=== PATIENT | male | born 1940 | race Caucasian/White ===

== ENCOUNTER 2019-05-16 20:41 | Inpatient (IN) | payer MEDICARE, OTHER ==
[~2019-05-16] VITALS: Ht 182.9 cm; Wt 91.3 kg
[~2019-05-16 20:41] MED LIST: ALBU90OI INH; AMOCLA875; AZIT250 PO; CEFP500 PO; GUAI600T33 PO; PRED20 PO; UNKOWN B/P MED
[2019-05-16 20:58] LABS: Hematocrit 38.3 % (37.0-53.0); Hemoglobin 12.7 g/dL (13.5-17.5); Mean Corpuscular HGB Conc 33.2 g/dL (31.5-36.5); Mean Corpuscular Volume 90 fL (80-100); Mean Platelet Volume 11.4 fL (9.1-12.4); Platelet Count 147 K/mm3 (150-400); RDW Coefficient Variation 13.4 % (11.7-14.2); RDW Standard Deviation 44.1 fL (35.1-46.3); Red Blood Cell Count 4.24 M/mm3 (4.30-5.90); White Blood Cell Count 25.12 K/mm3 (4.00-11.30)
[2019-05-16 21:15] LABS: BAND PERCENT MAN 29 % (0-8); BASOPHILS PERCENT MAN 0 % (0-2); EOSINOPHILS PERCENT MAN 0 % (0-6); LYMPHOCYTES ABSOLUTE MAN 0.25 K/mm3 (0.84-5.20); LYMPHOCYTES PERCENT MAN 1 % (21-46); MONOCYTES PERCENT MAN 2 % (4-13); NEUTROPHILS ABSOLUTE MAN 24.36 K/mm3 (1.96-9.15); SEG NEUTROPHILS PERCENT MAN 68 % (41-73); TOTAL CELLS COUNTED 100
[2019-05-16 21:17] LABS: Alanine Aminotransfer (ALT/SGP 14 U/L (12-78); Albumin, Blood 2.5 g/dL (3.4-5.0); Albumin/Globulin Ratio 0.7 (0.8-1.8); Alk Phos 69 U/L (50-136); Anion Gap 10 mmol/L (6-16); Aspartate Aminotrans (AST/SGOT 11 U/L (12-37); Bilirubin, Total 0.7 mg/dL (0.1-1.0); Blood Urea Nitrogen 24 mg/dL (8-24); Bun/Creatinine Ratio 22.6 (12.0-20.0); CO2, Blood 23 mmol/L (21-32); Calcium, Blood 8.8 mg/dL (8.5-10.1); Chloride, Blood 100 mmol/L (98-108); Creatinine, Blood 1.06 mg/dL (0.60-1.20); Globulin, Blood 3.7 g/dL (2.2-4.0); Glomerular Filtration Rate >60 (60-); Glucose, Blood 162 mg/dL (70-99); Potassium, Blood 3.8 mmol/L (3.5-5.5); Sodium, Blood 133 mmol/L (136-145); Total Protein, Blood 6.2 g/dL (6.4-8.2); Troponin I <0.015 ng/mL (0.000-0.040)
[2019-05-16] MEDS ORDERED: IBUP600 PO (22:38)
[2019-05-16] MEDS ORDERED: Zantac150 MG PO (22:38)
[2019-05-16] MEDS ORDERED: FINA5 PO (22:39)
[2019-05-16] MEDS ORDERED: PANT40 PO (22:40)
[2019-05-16] MEDS ORDERED: ACTIFED (22:40)
[2019-05-16] MEDS ORDERED: MONT10T PO (22:40)
[2019-05-16] MEDS ORDERED: ALFU10 (22:40)
[2019-05-16] MEDS ORDERED: Flonase 0.05% N16 GM (22:41)
[2019-05-16] MEDS ORDERED: AMLO5 PO (22:41)
[2019-05-16] MEDS ORDERED: STRIVERDI RESPIM4 GM INH (22:42)
[2019-05-16] MEDS ORDERED: ALBU90OI INH (22:43)
[2019-05-16 23:03] LABS: International Normalized Ratio 1.11; Prothrombin Time Results 11.7 Sec (9.7-11.5)
[2019-05-17] MEDS ORDERED: TRAM50 PO (00:48)
[2019-05-17] MEDS ORDERED: ABAT250V (00:48)
--- NOTE | 2019-05-17 04:24 | NUR ---
SHIFT SUMMARY: 79 Y/O MALE RESTED COMFORTABLY ALL SHIFT, DENIES PAIN, NAUSEA OR DYSPNEA, COMPLETED 3LITER BOLUS LACTATED RINGERS AND VOIDING CLEAR YELLOW FLUID, AFEBRILE, WENT HOME FOR NIGHT, BED LOW POSITION, CALL LIGHT AT SIDE.
[2019-05-17 05:29] LABS: Hematocrit 33.5 % (37.0-53.0); Mean Corpuscular HGB 29.5 pg (26.0-34.0); Mean Corpuscular HGB Conc 32.8 g/dL (31.5-36.5); Mean Corpuscular Volume 90 fL (80-100); Mean Platelet Volume 12.5 fL (9.1-12.4); Platelet Count 125 K/mm3 (150-400); RDW Coefficient Variation 13.7 % (11.7-14.2); RDW Standard Deviation 45.1 fL (35.1-46.3); Red Blood Cell Count 3.73 M/mm3 (4.30-5.90); White Blood Cell Count 20.02 K/mm3 (4.00-11.30)
[2019-05-17 05:46] LABS: BAND PERCENT MAN 23 % (0-8); BASOPHILS PERCENT MAN 0 % (0-2); EOSINOPHILS PERCENT MAN 0 % (0-6); LYMPHOCYTES PERCENT MAN 3 % (21-46); MONOCYTES PERCENT MAN 3 % (4-13); NEUTROPHILS ABSOLUTE MAN 18.81 K/mm3 (1.96-9.15); SEG NEUTROPHILS PERCENT MAN 71 % (41-73); TOTAL CELLS COUNTED 100
[2019-05-17 05:55] LABS: Anion Gap 7 mmol/L (6-16); Blood Urea Nitrogen 21 mg/dL (8-24); CO2, Blood 28 mmol/L (21-32); Calcium, Blood 8.6 mg/dL (8.5-10.1); Chloride, Blood 105 mmol/L (98-108); Creatinine, Blood 1.05 mg/dL (0.60-1.20); Glomerular Filtration Rate >60 (60-); Glucose, Blood 112 mg/dL (70-99); Potassium, Blood 3.4 mmol/L (3.5-5.5); Sodium, Blood 140 mmol/L (136-145)
[2019-05-17 10:27] LABS: Source, Urine Catheter
[2019-05-17 10:32] LABS: Bilirubin, Urine Neg (Neg); Blood, Urine 1+ (Neg); Glucose Qualitative, Urine Neg (Neg); Ketones, Urine Neg (Neg); Leukocyte Esterase, Urine Neg (Neg); Nitrite, Urine Neg (Neg); Protein, Urine 1+ (Neg); Specific Gravity, Urine 1.005 (1.003-1.022); Urobilinogen, Urine NORM (Normal); pH, Urine 6.5 (5.0-8.0)
[2019-05-17 10:50] LABS: Appearance, Urine Clear (Clear); Color, Urine Yellow (P-Yellow)
[2019-05-17 10:51] LABS: Bacteria Rare /hpf; Red Blood Cells, Urine 0-2 /hpf (0-2); Squamous Epithelial Cells Not Seen /hpf (Few); White Blood Cells, Urine 0-2 /hpf (0-5)
[2019-05-17 12:18] LABS: Adenovirus Not Detected (NOT DETECT); Bordetella pertussis Not Detected (NOT DETECT); Chlamydophila pneumoniae Not Detected (NOT DETECT); Coronavirus 229E Not Detected (NOT DETECT); Coronavirus HKU1 Not Detected (NOT DETECT); Coronavirus NL63 Not Detected (NOT DETECT); Coronavirus OC43 Not Detected (NOT DETECT); Human Metapneumovirus Not Detected (NOT DETECT); Human Rhinovirus/Enterovirus Not Detected (NOT DETECT); Influenza A Not Detected (NOT DETECT); Influenza A/2009-H1 Not Detected (NOT DETECT); Influenza A/H1 Not Detected (NOT DETECT); Influenza A/H3 Not Detected (NOT DETECT); Influenza B Not Detected (NOT DETECT); Mycoplasma pneumoniae Not Detected (NOT DETECT); Parainfluenza Virus 1 Not Detected (NOT DETECT); Parainfluenza Virus 2 Not Detected (NOT DETECT); Parainfluenza Virus 3 Not Detected (NOT DETECT); Parainfluenza Virus 4 Not Detected (NOT DETECT); Respiratory Syncytial Virus Not Detected (NOT DETECT)
--- NOTE | 2019-05-17 17:14 | NUR ---
SHIFT SUMMARY PATIENT A&O X4, INDEPENDENT IN ROOM. PT HAS A STRONG DRY COUGH, WITH OCCASIONAL THICK DELGADO/CLEAR SPUTUM, SAMPLE SENT TO LAB. HE IS VOIDING WELL INTO THE URINAL. HE C/O MODERATE PAIN IN CHEST WHEN COUGHING CORESPONDING WITH A SLIGHT SPASM IN L FLANK. HE STATES HE ALSO HAS 4/10 CHRONIC R SHOULDER PAIN, STATING HE MAY HAVE A TORN ROTATOR CUFF. VSS, ON RA. DENIES SOB, NAUSEA, FEELING HOT/COLD. HE STATES HE IS VERY TIRED FROM NOT SLEEPING MUCH LAST NIGHT. CALLS APPROPRIATELY, VERY PLEASANT.
--- NOTE | 2019-05-18 04:49 | NUR ---
FRAME RUNNER SUMMARY NO ACUTE CHANGES THIS SHIFT. PT AAOX4 AND INDEPENDENT IN ROOM. PT REPORTS BREATHING IMPROVED. LUNG SOUNDS FAINTLY COARSE IN LLL. PT SATTING WELL ON ROOM AIR. PT REPORTS OCCASIONAL DRY COUGH. CONTINUED ON IV ABX. VSS, WILL CONTINUE TO MONITOR.
[2019-05-18 05:47] LABS: BASOPHILS ABSOLUTE AUTO 0.04 K/mm3 (0.00-0.23); BASOPHILS PERCENT AUTO 0 % (0-2); EOSINOPHILS ABSOLUTE AUTO 0.27 K/mm3 (0.00-0.68); EOSINOPHILS PERCENT AUTO 2 % (0-6); Hematocrit 33.1 % (37.0-53.0); Hemoglobin 10.6 g/dL (13.5-17.5); IMMATURE GRAN ABSOLUTE AUTO 0.07 K/mm3 (0.00-0.10); IMMATURE GRAN PERCENT AUTO 1 % (0-1); LYMPHOCYTES ABSOLUTE AUTO 0.81 K/mm3 (0.84-5.20); LYMPHOCYTES PERCENT AUTO 6 % (21-46); MONOCYTES ABSOLUTE AUTO 0.54 K/mm3 (0.16-1.47); MONOCYTES PERCENT AUTO 4 % (4-13); Mean Corpuscular HGB 28.7 pg (26.0-34.0); Mean Corpuscular Volume 90 fL (80-100); Mean Platelet Volume 11.3 fL (9.1-12.4); NEUTROPHILS ABSOLUTE AUTO 12.17 K/mm3 (1.96-9.15); NEUTROPHILS PERCENT AUTO 88 % (41-73); Platelet Count 158 K/mm3 (150-400); RDW Coefficient Variation 13.8 % (11.7-14.2); RDW Standard Deviation 45.3 fL (35.1-46.3); Red Blood Cell Count 3.69 M/mm3 (4.30-5.90)
[2019-05-18 06:11] LABS: Anion Gap 7 mmol/L (6-16); Blood Urea Nitrogen 19 mg/dL (8-24); Bun/Creatinine Ratio 20.3 (12.0-20.0); CO2, Blood 25 mmol/L (21-32); Calcium, Blood 9.1 mg/dL (8.5-10.1); Chloride, Blood 110 mmol/L (98-108); Creatinine, Blood 0.94 mg/dL (0.60-1.20); Glomerular Filtration Rate >60 (60-); Glucose, Blood 96 mg/dL (70-99); Potassium, Blood 3.4 mmol/L (3.5-5.5); Sodium, Blood 142 mmol/L (136-145)
--- NOTE | 2019-05-18 16:25 | NUR ---
Spiritual Care intial note: Mr. Menon is a proud [employer] . He is also a devout Chrisitan. 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 He says he is tired of being sick. He does not being house-bound by his illness. In fact, he says he does not completely understand what is wrong with his lungs. "No one has ever been able to explain it to me in a way that I can understand." Mr. Menon wants to know if he will ever be able to return to his active lifestyle. He says he feels himself getting worse and admits he is fearful. I provided gentle spiritual direction and prayer to good effect. I will remain available.
--- NOTE | 2019-05-18 19:18 | NUR ---
SHIFT SUMMARY: NO ACUTE CHANGES TO REPORT THIS SHIFT. PT A*O; CALM AND COOPERATIVE WITH CARE. MEDICATED FOR PAIN PER EMAR. HX BPH; AWAITING ALFUZOSIN FROM HOME; PROSCAR & FLOMAX GIVEN. PT INDEPENDENT IN ROOM. REPORT GIVEN TO ONCOMING RN.
--- NOTE | 2019-05-19 05:10 | NUR ---
AUCTIONEER ART SUMMARY NO ACUTE CHANGES THIS SHIFT. PT AAOX4 AND INDEPENDENT. PT REPORTS EASIER URINATION ONCE STARTED ON FLOMAX. STILL AWAITING PT'S FAMILY TO BRING IN REGULAR HOME MED. PT HAS HAD LITTLE TO NO COUGH TONIGHT AND STATES BREATHING CONTINUES TO GET BETTER. VSS, WILL CONTINUE TO MONITOR.
--- NOTE | 2019-05-19 18:42 | NUR ---
Spiritual Care routine visit: Mr. Menon says he is still waiting for a clear explaination of his illness and it's path. He smiles easily. His is present at bedside. I provided prayer at bedside. They express gratitude for spiritual support. I will remain available.
--- NOTE | 2019-05-19 19:49 | NUR ---
SHIFT SUMMARY: NO ACUTE CHANGES TO REPORT THIS SHIFT. PT A&O; CALM AND COOPERATIVE WITH CARE; INDEPENDENT IN ROOM. MEDICATED FOR PAIN PER EMAR. LLL PNA; CHEST XRAY THIS SHIFT; AWAITING RESULTS. REPORT GIVEN TO ONCOMING RN.
--- NOTE | 2019-05-20 05:29 | NUR ---
FINANCIAL SECRETARY SUMMARY NO ACUTE CHANGES THIS SHIFT. PT AAOX4 AND INDEPENDENT. LUNG SOUNDS IMPROVED, CRACKLES IN LLL VERY FAINT. PT CONTINUES TO URINATE FREQUENTLY R/T BPH. PSA 21.5. VSS, WILL CONTINUE TO MONITOR.
[2019-05-20] MEDS ORDERED: PRED20 PO (11:15)
[2019-05-20] MEDS ORDERED: CEFU500T30 PO (11:17)
--- NOTE | 2019-05-20 11:48 | NUR ---
PATIENT D/C'D TO HOME WITH . VSS THIS AM. RX MEDICATIONS FAXED TO [facility]. D/C INSTRUCTIONS AND EDUCATION DISCUSSED WITH PATIENT AND COPY PROVIDED. PATIENT DENIES ANY FUTHER QUESTIONS OR CONCERNS. PATIENT WOULD LIKE TO CALL TO MAKE FOLLOW UP APPT NEXT WEEK WITH PCP, PHONE NUMBER AND ADDRESS PROVIDED.
== END 2019-05-20 11:49 | disposition home or self-care (01) | DRG 871 ==
LOC: ER 20:41 → MEDS 23:14
PROVIDERS: Emergency Medicine; Internal Medicine; ADMIT Hospitalist
DX: A41.9 Sepsis, unspecified organism (principal); J18.9 Pneumonia, unspecified organism; J96.21 Acute and chronic respiratory failure with hypoxia; J44.0 Chronic obstructive pulmonary disease with (acute) lower respiratory infection; J44.1 Chronic obstructive pulmonary disease with (acute) exacerbation; E87.1 Hypo-osmolality and hyponatremia; N40.0 Benign prostatic hyperplasia without lower urinary tract symptoms; D64.9 Anemia, unspecified; E87.6 Hypokalemia; I10 Essential (primary) hypertension; K21.9 Gastro-esophageal reflux disease without esophagitis; R65.20 Severe sepsis without septic shock; Z85.46 Personal history of malignant neoplasm of prostate; Z79.51 Long term (current) use of inhaled steroids; Z79.899 Other long term (current) drug therapy
CPT/HCPCS: 0099U; 36415; 71046; 71260; 80048; 80053; 81001; 83605; 84145; 84153; 84484; 85025; 85610; 85730; 87040; 87070; 87075; 87077; 87086; 87186; 87205; 93005; 93010; 94640; 94760; 96365; 99285-25; A9270; C9113; J0696; J1650; J7030; J7120; J7512; Q9967

== ENCOUNTER 2020-01-10 21:04 | Observation (INO) | payer MEDICARE, OTHER ==
[~2020-01-10] VITALS: Ht 182.9 cm; Wt 90.9 kg
[~2020-01-10 21:04] MED LIST changes: +ABAT250V; +ACTIFED; +ALFU10; +AMLO5 PO; +CEFU500T30 PO; +FINA5 PO; +Flonase 0.05% N16 GM; +IBUP600 PO; +MONT10T PO; +PANT40 PO; +STRIVERDI RESPIM4 GM INH; +TRAM50 PO; +Zantac150 MG PO
[2020-01-10 21:55] LABS: BASOPHILS ABSOLUTE AUTO 0.05 K/mm3 (0.00-0.23); BASOPHILS PERCENT AUTO 0 % (0-2); EOSINOPHILS ABSOLUTE AUTO 0.05 K/mm3 (0.00-0.68); EOSINOPHILS PERCENT AUTO 0 % (0-6); Hematocrit 41.7 % (37.0-53.0); Hemoglobin 13.4 g/dL (13.5-17.5); IMMATURE GRAN ABSOLUTE AUTO 0.09 K/mm3 (0.00-0.10); IMMATURE GRAN PERCENT AUTO 1 % (0-1); LYMPHOCYTES ABSOLUTE AUTO 0.75 K/mm3 (0.84-5.20); LYMPHOCYTES PERCENT AUTO 6 % (21-46); MONOCYTES ABSOLUTE AUTO 0.65 K/mm3 (0.16-1.47); MONOCYTES PERCENT AUTO 6 % (4-13); Mean Corpuscular HGB 28.2 pg (26.0-34.0); Mean Corpuscular HGB Conc 32.1 g/dL (31.5-36.5); Mean Corpuscular Volume 88 fL (80-100); Mean Platelet Volume 11.2 fL (9.1-12.4); NEUTROPHILS ABSOLUTE AUTO 10.04 K/mm3 (1.96-9.15); NEUTROPHILS PERCENT AUTO 86 % (41-73); Platelet Count 207 K/mm3 (150-400); RDW Coefficient Variation 13.6 % (11.7-14.2); RDW Standard Deviation 44.5 fL (35.1-46.3); Red Blood Cell Count 4.75 M/mm3 (4.30-5.90); White Blood Cell Count 11.63 K/mm3 (4.00-11.30)
[2020-01-10 22:14] LABS: Alanine Aminotransfer (ALT/SGP 17 U/L (12-78); Albumin, Blood 3.4 g/dL (3.4-5.0); Albumin/Globulin Ratio 0.9 (0.8-1.8); Alk Phos 72 U/L (50-136); Anion Gap 6 mmol/L (6-16); Aspartate Aminotrans (AST/SGOT 15 U/L (12-37); Bilirubin, Total 0.6 mg/dL (0.1-1.0); Blood Urea Nitrogen 10 mg/dL (8-24); Bun/Creatinine Ratio 11.1 (12.0-20.0); CO2, Blood 24 mmol/L (21-32); Calcium, Blood 8.9 mg/dL (8.5-10.1); Chloride, Blood 110 mmol/L (98-108); Globulin, Blood 3.8 g/dL (2.2-4.0); Glomerular Filtration Rate >60 (60-); Glucose, Blood 144 mg/dL (70-99); Potassium, Blood 3.4 mmol/L (3.5-5.5); Sodium, Blood 140 mmol/L (136-145); Total Protein, Blood 7.2 g/dL (6.4-8.2)
[2020-01-10 23:23] LABS: Source, Urine Clean Catch
[2020-01-10 23:26] LABS: Bilirubin, Urine Neg (Neg); Blood, Urine 2+ (Neg); Glucose Qualitative, Urine Neg (Neg); Ketones, Urine 1+ (Neg); Leukocyte Esterase, Urine 2+ (Neg); Nitrite, Urine Neg (Neg); Protein, Urine 2+ (Neg); Specific Gravity, Urine 1.015 (1.003-1.022); Urobilinogen, Urine NORM (Normal)
[2020-01-10 23:29] LABS: Appearance, Urine Clear (Clear); Color, Urine Yellow (P-Yellow)
[2020-01-10 23:35] LABS: Bacteria Mod /hpf; Mucus Light (0-Heavy); Red Blood Cells, Urine 0-2 /hpf (0-2); Squamous Epithelial Cells Few /hpf (Few); White Blood Cells, Urine 25-50 /hpf (0-5)
[2020-01-11] MEDS ORDERED: ALLERCLEAR10 M1 PO (00:59)
[2020-01-11] MEDS ORDERED: FAMO40 PO (00:59)
[2020-01-11] MEDS ORDERED: GUAIFENESIN ER600 M1 PO (01:00)
[2020-01-11] MEDS ORDERED: PANTOPRAZOLE SO40 M2 PO (01:00)
[2020-01-11] MEDS ORDERED: IBU800 M1 PO (01:02)
[2020-01-11 04:24] LABS: BASOPHILS ABSOLUTE AUTO 0.07 K/mm3 (0.00-0.23); BASOPHILS PERCENT AUTO 1 % (0-2); EOSINOPHILS ABSOLUTE AUTO 0.01 K/mm3 (0.00-0.68); EOSINOPHILS PERCENT AUTO 0 % (0-6); Hematocrit 40.8 % (37.0-53.0); Hemoglobin 13.3 g/dL (13.5-17.5); IMMATURE GRAN ABSOLUTE AUTO 0.08 K/mm3 (0.00-0.10); IMMATURE GRAN PERCENT AUTO 1 % (0-1); LYMPHOCYTES PERCENT AUTO 6 % (21-46); MONOCYTES ABSOLUTE AUTO 0.87 K/mm3 (0.16-1.47); MONOCYTES PERCENT AUTO 7 % (4-13); Mean Corpuscular HGB 28.9 pg (26.0-34.0); Mean Corpuscular HGB Conc 32.6 g/dL (31.5-36.5); Mean Corpuscular Volume 89 fL (80-100); Mean Platelet Volume 11.3 fL (9.1-12.4); NEUTROPHILS PERCENT AUTO 85 % (41-73); Platelet Count 181 K/mm3 (150-400); RDW Coefficient Variation 13.9 % (11.7-14.2); RDW Standard Deviation 44.8 fL (35.1-46.3); Red Blood Cell Count 4.61 M/mm3 (4.30-5.90); White Blood Cell Count 12.43 K/mm3 (4.00-11.30)
[2020-01-11 04:43] LABS: Alanine Aminotransfer (ALT/SGP 15 U/L (12-78); Albumin, Blood 3.4 g/dL (3.4-5.0); Albumin/Globulin Ratio 0.9 (0.8-1.8); Alk Phos 69 U/L (50-136); Anion Gap 3 mmol/L (6-16); Aspartate Aminotrans (AST/SGOT 14 U/L (12-37); Bilirubin, Total 0.7 mg/dL (0.1-1.0); Blood Urea Nitrogen 9 mg/dL (8-24); Bun/Creatinine Ratio 9.5 (12.0-20.0); CO2, Blood 28 mmol/L (21-32); Calcium, Blood 8.8 mg/dL (8.5-10.1); Chloride, Blood 109 mmol/L (98-108); Creatinine, Blood 0.95 mg/dL (0.60-1.20); Globulin, Blood 3.7 g/dL (2.2-4.0); Glomerular Filtration Rate >60 (60-); Glucose, Blood 134 mg/dL (70-99); Potassium, Blood 3.8 mmol/L (3.5-5.5); Sodium, Blood 140 mmol/L (136-145); Total Protein, Blood 7.1 g/dL (6.4-8.2)
--- NOTE | 2020-01-11 05:46 | NUR ---
Care performed by nursing surgical services director and nurse. Carting and notes all reviewed and approved by this RN.
--- NOTE | 2020-01-11 13:13 | NUR ---
PT HAS GONE TO SURGERY.
--- NOTE | 2020-01-11 13:46 | NUR ---
PT TRANSPORTED TO [facility]. AGREES WITH PLANNED SURGERY. DR. PADRON IN TO SEE PT. CONSENT OBTAINED. LOUNDS WITH RHONCHI AND EXPIRATORY WHEEZES, AUDIBLE WHEEZES ALSO HEARD. DR. ADAM INFORMED. ORDER FOR DUO NEB GIVEN. LUNGS CLEARED WITH EXCEPETION OF FAINT SCATTERED WHEEZES ON RIGHT SIDE.
--- NOTE | 2020-01-11 14:04 | NUR ---
SHIFT ASSESSMENT SHIFT ASSESSMENT BY NITIN STUDENT NURSE WAS REVIEWED BY THIS RN. THIS RN AGREES WITH DOCUMENTATION BY NITIN CALABRESE. LUNG SOUNDS WERE CLEAR T/O WHEN THIS RN ASSESSED.
--- NOTE | 2020-01-11 16:37 | NUR ---
PT RETURNED FROM SURGERY AT 1630. HE IS A/O, REPORTS NO PAIN. HE IS DRINKING OKAY. SPOKE TO FAMILY MEMBER ON THE PHONE.
--- NOTE | 2020-01-11 18:22 | NUR ---
PT IS SLEEPING PEACEFULLY.
--- NOTE | 2020-01-11 18:23 | NUR ---
SHIFT REPORT STEPHANIE WAS IN A LOT OF PAIN THIS MORNING AND REPORTED NO PAIN AFTER SURGERY TODAY. HE EATS AND DRINKS OKAY. LUNG SOUNDS ARE CLEAR. HE IS A/O X4. PT IS KIND AND COOPERATIVE.
--- NOTE | 2020-01-11 19:49 | NUR ---
SHIFT SUMMARY PT IS POD#[address] [facility] [address] PADRON. PT IS DOING WELL POST OP. HE DENIES PAIN AND NAUSEA. HE IS TOLERATING PO. VSS. REPORT GIVEN TO JAVIER SANTAMARIA.
--- NOTE | 2020-01-12 05:27 | NUR ---
SHIFT SUMMARY POD 1 LAP VIJI SERRA STRIPS IN PLACE AND DRY. DENIED PAIN OR NEED FOR MEDICATION T/O SHIFT. ELGIN PO INTAKE. APPEARS TO HAVE SLEPT T/O MOST OF SHIFT. ABLE TO AMBULATE IND. REPORTS PASSING FLATUS. IVF/ABX INFUSED PER ORDERS. PT CURRENTLY RESTING IN BED WITH CALL LIGHT IN REACH. WILL CONT TO MONITOR AND GIVE REPORT TO ONCOMING RN.
--- NOTE | 2020-01-12 12:40 | NUR ---
SHIFT ASSESSMENT SHIFT ASSESSMENT DOCUMENTED BY NITIN STUDENT NURSE. ASSESSMENT REVIEWED BY THIS RN AND THIS RN AGREES WITH DOCUMENTATION.
--- NOTE | 2020-01-12 16:28 | NUR ---
DISCHARGE PT WAS PROVIDED WITH WRITTEN AND VERBAL DISCHARGE INSTRUCTIONS. PT REPORTED UNDERSTANDING. NO NEW MEDICATION UPON DISCHARGE. PT AMBULATED OUT INDEPENDENTLY.
--- NOTE | 2020-01-12 16:32 | NUR ---
SHIFT SUMMARY/DISCHARGE PT WALKED THE HALLS AT APPROXIMATELY 1500 HOURS. HIS HR WAS 104 AND O2 WAS 94% WHILE AMBULATING. HE WALKED ON HIS OWN WITH NO ASSISTANCE. HE WAS DISCHARGED AT 1615. HE WALKED OUT OF THE HOSPITAL HIMSELF. PT STATED HIS WAS PICKING HIM UP.
== END 2020-01-12 16:30 | disposition home or self-care (01) ==
LOC: ER 21:04 → SURS 01-11 01:11
PROVIDERS: Physician Assistant; Surgery; ADMIT Family Medicine
PROC: 0FT44ZZ Resection of Gallbladder, Percutaneous Endoscopic Approach (ICD-10-PCS; principal; 2020-01-11 13:45)
DX: K80.00 Calculus of gallbladder with acute cholecystitis without obstruction (principal); E87.6 Hypokalemia; I10 Essential (primary) hypertension; J44.9 Chronic obstructive pulmonary disease, unspecified; E78.5 Hyperlipidemia, unspecified; M19.90 Unspecified osteoarthritis, unspecified site; K21.9 Gastro-esophageal reflux disease without esophagitis; N40.0 Benign prostatic hyperplasia without lower urinary tract symptoms; Z79.899 Other long term (current) drug therapy; Z88.8 Allergy status to other drugs, medicaments and biological substances; Z79.82 Long term (current) use of aspirin
CPT/HCPCS: 36415; 74177; 80053; 81001; 83690; 84484; 85025; 87086; 88304; 93005; 93010; 94640; 94760; 96365; 96375; 99285-25; G0378; J0696; J1100; J1170; J1885; J2370; J2405; J2543; J2704; J2710; J3010; J3480; J7120; Q9967; U0002

== ENCOUNTER 2021-02-10 14:49 | Emergency (ER) | payer MEDICARE, OTHER ==
[~2021-02-10] VITALS: Ht 188 cm; Wt 99.8 kg
[~2021-02-10 14:49] MED LIST changes: +ALFUZOSIN HCL10 MG PO; +ALLERCLEAR10 M1 PO; +AMLODIPINE BESY10 MG PO; +Clear-Atadine10 MG PO; +FAMO20 PO; +FAMO40 PO; +FLUTICASONE PRO16 GM; +GUAIFENESIN ER600 M1 PO; +IBU800 M1 PO; +PANTOPRAZOLE SO40 M2 PO; +SYMBICORT 16010.2 GM INH
[2021-02-10] MEDS ORDERED: THERA-D2000 UNIT PO (15:09)
[2021-02-10] MEDS ORDERED: GEMF600 PO (15:10)
[2021-02-10] MEDS ORDERED: GUAI600T33 PO (15:11)
[2021-02-10] MEDS ORDERED: STRIVERDI RESPIM4 G1 INH (15:12)
[2021-02-10] MEDS ORDERED: PRED5 PO (15:13)
[2021-02-10 15:14] LABS: BASOPHILS ABSOLUTE AUTO 0.04 K/mm3 (0.00-0.23); BASOPHILS PERCENT AUTO 0 % (0-2); EOSINOPHILS ABSOLUTE AUTO 0.01 K/mm3 (0.00-0.68); EOSINOPHILS PERCENT AUTO 0 % (0-6); Hematocrit 42.5 % (37.0-53.0); Hemoglobin 13.7 g/dL (13.5-17.5); IMMATURE GRAN ABSOLUTE AUTO 0.17 K/mm3 (0.00-0.10); IMMATURE GRAN PERCENT AUTO 2 % (0-1); LYMPHOCYTES ABSOLUTE AUTO 0.53 K/mm3 (0.84-5.20); LYMPHOCYTES PERCENT AUTO 6 % (21-46); MONOCYTES ABSOLUTE AUTO 0.24 K/mm3 (0.16-1.47); MONOCYTES PERCENT AUTO 3 % (4-13); Mean Corpuscular HGB 28.8 pg (26.0-34.0); Mean Corpuscular HGB Conc 32.2 g/dL (31.5-36.5); Mean Corpuscular Volume 90 fL (80-100); Mean Platelet Volume 11.5 fL (9.1-12.4); NEUTROPHILS ABSOLUTE AUTO 8.09 K/mm3 (1.96-9.15); NEUTROPHILS PERCENT AUTO 89 % (41-73); Platelet Count 165 K/mm3 (150-400); RDW Coefficient Variation 13.9 % (11.7-14.2); RDW Standard Deviation 45.7 fL (35.1-46.3); Red Blood Cell Count 4.75 M/mm3 (4.30-5.90); White Blood Cell Count 9.08 K/mm3 (4.00-11.30)
[2021-02-10] MEDS ORDERED: TRAM50 PO (15:14)
[2021-02-10 15:30] LABS: Alanine Aminotransfer (ALT/SGP 23 U/L (12-78); Albumin, Blood 3.6 g/dL (3.4-5.0); Albumin/Globulin Ratio 1.2 (0.8-1.8); Alk Phos 52 U/L (50-136); Anion Gap 7 mmol/L (6-16); Aspartate Aminotrans (AST/SGOT 15 U/L (12-37); Bilirubin, Total 0.7 mg/dL (0.1-1.0); Blood Urea Nitrogen 19 mg/dL (8-24); Bun/Creatinine Ratio 16.4 (12.0-20.0); CO2, Blood 25 mmol/L (21-32); Calcium, Blood 9.4 mg/dL (8.5-10.1); Chloride, Blood 109 mmol/L (98-108); Creatinine, Blood 1.16 mg/dL (0.60-1.20); Glomerular Filtration Rate >60 (60-); Glucose, Blood 145 mg/dL (70-99); Potassium, Blood 4.3 mmol/L (3.5-5.5); Sodium, Blood 141 mmol/L (136-145); Total Protein, Blood 6.6 g/dL (6.4-8.2); Troponin I 0.024 ng/mL (0.000-0.040)
[2021-02-10] MEDS ORDERED: FAMO40 PO (17:43)
== END 2021-02-10 17:54 | disposition home or self-care (01) ==
LOC: ER 14:49
PROVIDERS: Emergency Medicine
DX: R07.9 Chest pain, unspecified (principal); J44.9 Chronic obstructive pulmonary disease, unspecified; I10 Essential (primary) hypertension; E78.5 Hyperlipidemia, unspecified; Z79.899 Other long term (current) drug therapy
CPT/HCPCS: 71046; 80053; 83690; 84484; 85025; 93005; 93010; 99285-25; A9270

== ENCOUNTER 2022-03-20 09:31 | Day surgery (SDC) | payer OTHER ==
[~2022-03-20] VITALS: Ht 182.9 cm; Wt 98.0 kg
[~2022-03-20 09:31] MED LIST changes: +GEMF600 PO; +PRED5 PO; +STRIVERDI RESPIM4 G1 INH; +THERA-D2000 UNIT PO
--- NOTE | 2022-03-20 11:02 | NUR ---
03/20/22 1102 Leyla Pereira RIGHT EYE @ 1054 PAUL RIGHT EYE @ 1055 [facility]
[2022-03-20] MEDS ORDERED: LOSA25 (11:07)
[2022-03-20] MEDS ORDERED: TADA10TA (11:07)
== END 2022-03-20 12:27 | disposition home or self-care (01) ==
LOC: ORSCSDS 09:31
PROVIDERS: Ophthalmology
PROC: 08RJ3JZ Replacement of Right Lens with Synthetic Substitute, Percutaneous Approach (ICD-10-PCS; principal; 2022-03-20 11:00)
DX: H25.11 Age-related nuclear cataract, right eye (principal); I10 Essential (primary) hypertension; E78.5 Hyperlipidemia, unspecified; J44.9 Chronic obstructive pulmonary disease, unspecified; Z79.899 Other long term (current) drug therapy; Z79.51 Long term (current) use of inhaled steroids
CPT/HCPCS: J2001; J2250; J3010; J3301; J7040; V2632

== ENCOUNTER 2022-04-12 09:54 | Day surgery (SDC) | payer OTHER ==
[~2022-04-12] VITALS: Ht 182.9 cm; Wt 97.0 kg
[~2022-04-12 09:54] MED LIST changes: +LOSA25; +TADA10TA
== END 2022-04-12 11:48 | disposition home or self-care (01) ==
LOC: ORSCSDS 09:54
PROVIDERS: Ophthalmology
PROC: 08RK3JZ Replacement of Left Lens with Synthetic Substitute, Percutaneous Approach (ICD-10-PCS; principal; 2022-04-12 11:30)
DX: H25.12 Age-related nuclear cataract, left eye (principal); Z96.1 Presence of intraocular lens; I10 Essential (primary) hypertension; J45.909 Unspecified asthma, uncomplicated; J43.9 Emphysema, unspecified; Z79.899 Other long term (current) drug therapy
CPT/HCPCS: J2001; J2250; J3010; J3301; V2632

== ENCOUNTER 2024-04-25 11:31 | Emergency (ER) | payer OTHER ==
[~2024-04-25] VITALS: Ht 182.9 cm; Wt 97.5 kg
[2024-04-25 11:43] VITALS: BP 151/77
[2024-04-25] MEDS ORDERED: HYDR1TAB94 PO ×2 (14:21→14:22)
== END 2024-04-25 14:24 | disposition home or self-care (01) ==
LOC: ER 11:31
DX: M25.551 Pain in right hip (principal); I10 Essential (primary) hypertension; E78.00 Pure hypercholesterolemia, unspecified; Z79.52 Long term (current) use of systemic steroids; Z79.51 Long term (current) use of inhaled steroids; Z79.899 Other long term (current) drug therapy; Z88.6 Allergy status to analgesic agent; Z88.1 Allergy status to other antibiotic agents; Z88.8 Allergy status to other drugs, medicaments and biological substances
CPT/HCPCS: 73502; 99283-25